=== PATIENT | male | born 1935 | race Caucasian/White ===

== ENCOUNTER → 2017-04-25 | Day surgery (SDC) | payer MEDICARE, OTHER ==
[~2017-04-25] VITALS: Ht 165.1 cm; Wt 65.0 kg
[~2017-04-25] MED LIST: ASPI-973 PO; ATOR20TA PO; Acetaminophen IV 1,000 mg IV ONE; CeFAZolin 2 Gm/50 mL D5W IV Premix IV ONE; Lactated Ringer's 1,000 ML IV ONE; METO25TA6 PO; MULT-1018 PO; SILO4CAP PO; TERA10CA5 PO
[2017-04-25 06:14] VITALS: BP 166/59; PULSE 55; RESP 18; O2SAT 98
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
--- NOTE | 2017-04-25 11:37 | DRSVH ---
PROCEDURE: US BILATERAL DUPLEX DOPPLER IMAGING OF THE CAROTIDS ([id number]) INDICATIONS: ? TIA'S TECHNIQUE: Color and pulse Doppler interrogation was performed of both carotid systems, with image documentation and velocity measurements. COMPARISON: None. FINDINGS: All stenosis calculations are based on NASCET criteria. Right side: Brachial blood pressure: 147/70 mm Hg. Common Carotid Artery(Distal) PSV: 59.70 cm/s Internal Carotid Artery PSV- Proximal: 48.50 cm/s Mid-lon.10 cm/s Distal: 44.50 cm/s EDV - Proximal: 8.50 cm/s Mid-lon.60 cm/s Distal: 9.30 cm/s External Carotid Artery(Proximal) PSV: 101.80 cm/s ICA/CCA PSV ratio: 1.0 Youngblood scale imaging description: Moderate scattered plaque. Percent internal carotid artery stenosis: Less than 50% stenosis. Vertebral artery: Flow direction is antegrade. Left side: Brachial blood pressure: 151/70 mm Hg. Common Carotid Artery(Distal) PSV: 53.90 cm/s Internal Carotid Artery PSV - Proximal: 69.90 cm/s Mid-lon.40 cm/s Distal: 32.60 cm/s EDV - Proximal: 12 cm/s Mid-lon cm/s Distal: 6.90 cm/s External Carotid Artery(Proximal) PSV: 90.70 cm/s ICA/CCA PSV ratio: 1.4 Youngblood scale imaging description: Moderate scattered plaque. Percent internal carotid artery stenosis: Less than 50%. Vertebral artery: Flow direction is antegrade. IMPRESSION: Less than 50% bilateral internal carotid artery stenosis. Dictated by: Sudhakar Bermudez [facility] Interpreted: Kamari Abrams MD on 04/25/2017 at 11:16 Approved by: Frank Abrams M.D. on 04/25/2017 at 11:34
== END | disposition home or self-care (01) ==
LOC: SAS 05:27
PROVIDERS: ATTEND Specialist
DX: N40.1 Benign prostatic hyperplasia with lower urinary tract symptoms (principal); R35.1 Nocturia; I65.23 Occlusion and stenosis of bilateral carotid arteries; Z53.8 Procedure and treatment not carried out for other reasons
CPT/HCPCS: 93880; J0131; J7120